=== PATIENT | male | born 2000 | race African-American/Black ===

== ENCOUNTER 2020-02-15 14:42 | Emergency (ER) | payer MEDICAID, OTHER ==
[~2020-02-15] VITALS: Ht 193 cm; Wt 102.3 kg
[2020-02-15 15:54] LABS: APPEARANCE,URINE CLEAR (CLEAR); BILIRUBIN,URINE NEGATIVE (NEGATIVE); GLUCOSE, URINE (UA) NEGATIVE (NEGATIVE); KETONES,URINE NEGATIVE (NEGATIVE); LEUKOCYTE ESTERASE ,URINE SMALL (NEGATIVE); NITRATE,URINE NEGATIVE (NEGATIVE); OCCULT BLOOD,URINE NEGATIVE (NEGATIVE); PH,URINE 6.5 (5.0-8.0); PROTEIN,URINE NEGATIVE (NEGATIVE)
[2020-02-15 16:12] LABS: BACTERIA,URINE Rare /HPF (None Seen); RBC,URINE 0-2 /HPF (0-2); SQUAMOUS EPITHELIAL CELL,UR Few /LPF (None Seen)
[2020-02-15] MEDS ORDERED: CefTRIAXone SODIUM 1 GM/VIAL IM ONE (16:30)
[2020-02-15] MEDS ORDERED: IBUPROFEN 600 MG TABLET PO ONE (16:30)
[2020-02-15] MEDS ORDERED: LIDOCAINE 1% 10 ML VIAL INJ ONE (16:30)
[2020-02-15 17:11] VITALS: BP 128/76
== END 2020-02-15 17:13 | disposition home or self-care (01) ==
LOC: EMS 14:42
DX: N45.1 Epididymitis (principal); F12.90 Cannabis use, unspecified, uncomplicated
CPT/HCPCS: 76870; 81001; 87086; 96372; 99284; J0696; J3490